=== PATIENT | female | born 1995 | race Caucasian/White ===

== ENCOUNTER 2017-06-13 08:56 | Emergency (ER) | payer BC ==
[2017-06-13 10:44] VITALS: BP 106/60
[2017-06-13] MEDS ORDERED: Ondansetron ODT TAB* 4 MG PO ONE (10:53)
--- NOTE | 2017-06-13 11:02 | UC ---
Nausea/Vomiting/Diarrhea HPI - HPI Summary HPI Summary: Two-three days of upper abd pain and vomiting/diarrhea. No bleeding. No known fever. Hrere temp is 100.1. No prior abd surgery. She is taking sips of fluid. - History of Current Complaint Chief Complaint: UCGI Stated Complaint: STOMACH ACHE Time Seen by Provider: 06/13/17 10:44 Hx Obtained From: Patient Hx Last Menstrual Period: now Onset/Duration: Sudden Onset, Lasting Days Timing: Constant Severity Initially: Moderate Severity Currently: Moderate Pain Intensity: 0 Location: Epigastric Character: Dull, Cramping Aggravating Factor(s): Movement, Deep Breaths Alleviating Factor(s): Nothing Vomiting Frequency: Every 3-4 hours Vomiting Characteristics: Nonbilious Diarrhea Presence: Yes Diarrhea Frequency: Every 3-4 hours - Allergies/Home Medications Allergies/Adverse Reactions: Allergies Allergy/AdvReac Type Severity Reaction Status Date / Time No Known Allergies Allergy Verified 06/13/17 10:32 Home Medications: Home Medications Copper (Iud) [Paragard IUD] 1 unit IU DAILY 06/13/17 [History Confirmed 06/13/17 ] Escitalopram Oxalate [Lexapro] 20 mg PO QPM 06/13/17 [History Confirmed 06/13/17 ] PMH/Surg Hx/FS Hx/Imm Hx Previously Healthy: Yes - Surgical History Surgical History: Yes Surgery Procedure, Year, and Place: Right Knee for leg length discrepancy, 2004 - Family History Known Family History: Positive: Other - no related family. - Social History Occupation: Student Alcohol Use: Rare Substance Use Type: None Smoking Status (MU): Never Smoked Tobacco - Immunization History Most Recent Influenza Vaccination: Current for Review of Systems Gastrointestinal: Abdominal Pain, Vomiting, Diarrhea All Other Systems Reviewed And Are Negative: No Physical Exam Triage Information Reviewed: Yes Appearance: Well-Appearing, No Pain Distress, Well-Nourished Vital Signs: Initial Vital Signs Temp 100.1 F 06/13/17 10:38 Pulse 87 06/13/17 10:38 Resp 18 06/13/17 10:38 BP 106/60 06/13/17 10:38 Pulse Ox 98 06/13/17 10:38 Vital Signs Reviewed: Yes Eyes: Positive: Conjunctiva Clear ENT: Positive: Normal ENT inspection, Pharynx normal, TMs normal Neck: Positive: Supple, Nontender, No Lymphadenopathy Respiratory: Positive: Lungs clear, Normal breath sounds, No respiratory distress, No accessory muscle use. Negative: Respiratory distress Cardiovascular: Positive: No Murmur, Pulses Normal, Brisk Capillary Refill Abdominal Exam: Other - Neg ibarra's. Currently she is not in pain and abd is non tender. Abdomen Description: Positive: Nontender, No Organomegaly. Negative: CVA Tenderness (R), CVA Tenderness (L), Distended, Guarding Neurological: Positive: Alert, Muscle Tone Normal. Negative: Fatigued Psychological: Positive: Age Appropriate Behavior Skin: Negative: rashes Naus/Vom/Diarrhea Course/Dx - Course Course Of Treatment: Benign exam and vitals. She will go to ED for any wrosening symptoms in any way. In the meantime, bentyl and zofran and sips of fluid every 3-5 min. - Differential Dx/Diagnosis Provider Diagnoses: enteritis. Condition At Discharge: Good Discharge - Discharge Plan Condition: Good Disposition: HOME Prescriptions: Dicyclomine CAP* [Bentyl CAP*] 10 mg PO TID PRN #21 cap PRN Reason: Pain Ondansetron ODT TAB* [Zofran 4 MG Odt TAB*] 4 mg PO Q8H PRN #21 tab.odt PRN Reason: Vomiting Patient Education Materials: Gastroenteritis (DC) Forms: *School Release Referrals: Non Staff,Doctor [Primary Care Provider] -
== END 2017-06-13 11:08 | disposition home or self-care (01) ==
LOC: UCCORT 08:56
DX: K52.9 Noninfective gastroenteritis and colitis, unspecified (principal)
CPT/HCPCS: 99212; A9270-GY; G0463